=== PATIENT | male | born 1960 | race Caucasian/White ===

== ENCOUNTER 2023-07-15 22:05 | Emergency (ER) | payer SELFPAY ==
[~2023-07-15] VITALS: Ht 172.7 cm; Wt 65.9 kg
[2023-07-15 22:18] VITALS: BP 139/70; PULSE 85; RESP 16; O2SAT 100
[2023-07-15] MEDS ORDERED: ACETAMINOPHEN 325MG TABLET PO ONE (23:30)
[2023-07-15 23:53] VITALS: TEMP 98.4
== END 2023-07-16 03:13 | disposition home or self-care (01) ==
LOC: ER 22:05
DX: R51.9 Headache, unspecified (principal)
CPT/HCPCS: 99284